=== PATIENT | male | born 1985 | race Caucasian/White ===

== ENCOUNTER 2016-10-17 17:50 | Emergency (ER) | payer MEDICAID ==
[~2016-10-17 17:50] MED LIST: SYNTHROID PO
== END 2016-10-17 19:46 | disposition home or self-care (01) ==
LOC: CED 17:50
DX: F41.0 Panic disorder [episodic paroxysmal anxiety] (principal); F41.1 Generalized anxiety disorder; Z91.030 Bee allergy status
CPT/HCPCS: 96372; 99283; J2060

== ENCOUNTER 2016-12-24 10:26 | Inpatient (IN) | payer MEDICAID ==
--- NOTE | ~2016-12-24 | PA ---
Unit #: [id number] #: [id number] Patient: [facility]LL [facility]O [id number] [facility] [address] [place] [address] [id number] MR#: [id number] NAME: MAXWELL LAO ROOM: P175 Age: 31 Sex: M Admission Date: 12/24/2016 : 1985 Date of Assessment: 12/24/2016 Attending Physician: Mane Tyler M.D. Admitting Physician: Mane Tyler M.D. Primary Care Physician: Primary Care Physician No PSYCHIATRIC ASSESSMENT DATE OF SERVICE 12/24/2016. IDENTIFYING DATA Mr. Lao is a 31-year-old single white male, who is a resident of [place], [place] and is known to us from previous multiple encounters and was self-referred to the hospital with a blood alcohol level of 0.231. CHIEF COMPLAINT "Depression and suicidal thoughts." HISTORY OF PRESENT ILLNESS Mr. Lao is a 31-year-old white male with long history of mood disorder and substance abuse, who is known to us from previous multiple encounters and has a history of multiple inpatient psychiatric hospitalization with failure to follow up with outpatient treatment recommendations and once again, he relapsed on alcohol and has been drinking regularly and heavily and presented to the hospital in intoxicated state and then made statements that he has been having increasing depression and he seeking medication adjustment without realizing that he cannot be drinking with medication and expecting medications to work and this has been educated to him several times, but he continues to endorse poor insight into his situation and exhibits med seeking behavior with frequent multiple inpatient hospitalization. He now reports that he does not feel that his antipsychotic medication is working for him and that he has had increasing depression for about 2 weeks and that he does not currently take medication because they do not work and reports that he has suicidal ideation. He does not know if he could carry out a suicide attempt and reports that he walks out from his job and reports he cannot deal with his mental health at work and as such, recommendation for inpatient level of care was made and the patient was stepped up to the inpatient unit. SUBSTANCE ABUSE HISTORY The patient has a history of alcohol and cannabis abuse, and currently alcohol has been his drug of choice. PAST PSYCHIATRIC HISTORY The patient has had history of inpatient [facility] and has been diagnosed and treated for mood disorder. Review of the medical records indicate that he is supposed to be on a combination of Lamictal, Thorazine, and Risperdal, but apparently has been noncompliant with medications and has been drinking and as such, has not been able to show a therapeutic response to medications. Unit #: [id number] #: [id number] Patient: MAXWELL LAO PAST MEDICAL HISTORY The patient's medical history is significant for hypothyroidism, history of withdrawal seizures. ALLERGIES No known medication allergies. PERSONAL AND SOCIAL HISTORY A 31-year-old white male, who reports that he is single, unemployed, and lives in a chcf house and has poor social support system. MENTAL STATUS EXAMINATION Young white male, who was casually dressed with fair personal hygiene no acute distress or discomfort. He was awake and alert on interaction with intact orientation to time, place, and person. His mood was anxious and depressed with a congruent affect. His speech was slow and restricted in content. His thought processes were disorganized with some looseness of associations and suicidal ideations. His insight and judgment remain significantly impaired. DIAGNOSTIC IMPRESSION Psychiatric: Alcohol dependence, moderate and acute withdrawals; bipolar disorder, most recent episode depressed, recurrent, moderate, without psychotic features. Medical: History of withdrawal seizures. Stressors: Moderate psychosocial stressors. TREATMENT PLAN 1. The patient has presented with history of substance abuse and mood disorder, and has been decompensating and will need inpatient hospitalization for safety and stabilization. We will start back on his home medications and we will adjust the medications and monitor response. 2. Supportive therapy was provided to the patient. 3. Safe, structured, and nourishing environment will be provided. ESTIMATED LENGTH OF STAY 4 to 5 days. ABILITY TO HELP SELF Limited. WILLINGNESS TO HELP SELF The patient appears to be willing to help self. STRENGTHS 1. Communicative. 2. Cooperative. PROBLEMS 1. Chronic dysphoric symptoms. 2. Poor social support system. DISCHARGE CRITERIA This will be contingent upon the patient's ability to go through detox without having any significant withdrawal symptoms as well as ability to stay safe to himself, particularly after discharge from the hospital. Unit #: [id number] #: [id number] Patient: MAXWELL LAO Dictated by... Jonh Kim/zulema TD: 12/25/2016 06:51 JOB #: [id number] PSYCHIATRIC ASSESSMENT Page 1 of 1 X Mane Tyler MD PSYCHIATRIC ASSESSMENT
--- NOTE | ~2016-12-24 | DS ---
Unit #: [id number] #: [id number] Patient: MAXWELL LAO [id number] [facility] [address] [place] [address] [id number] MR#: [id number] NAME: MAXWELL LAO ROOM: [facility] Age: 31 Sex: M Admission Date: 12/24/2016 : 1985 Discharge Date: 12/30/2016 Attending Physician: Mane Tyler M.D. Primary Care Physician: Primary Care Physician No DISCHARGE SUMMARY IDENTIFYING DATA Mr. Lao is a 31-year-old single white male, who is a resident of [place], [place] and is known to us from previous encounter, and was self-referred to the hospital on a voluntary basis. DISCHARGE DIAGNOSES Psychiatric: Alcohol dependence, moderate, in acute withdrawals; bipolar disorder, most recent episode depressed, recurrent, moderate, without psychotic features. Medical: History of withdrawal seizures. Stressors: Moderate psychosocial stressors. HISTORY OF PRESENT ILLNESS Please see initial psychiatric evaluation for details. PAST PSYCHIATRIC HISTORY Please see initial psychiatric evaluation for details. PAST MEDICAL HISTORY Please see initial psychiatric evaluation for details. HOSPITAL COURSE The patient was [facility] and was oriented to the hospital environment. Routine p.r.n. medications were initiated, and he was started back on his home medications and medications were adjusted and he was closely monitored. He was seen to be complaining of persistent anger, agitation, irritability and Risperdal was started and he was seen to be doing much better and was calm and cooperative and was able to complete the treatment program without any complications and was willing to continue treatment on an outpatient basis and as such, it was decided that he will be discharged home and will continue treatment on an outpatient basis. DISCHARGE MEDICATIONS Lamictal 50 mg b.i.d. for mood disorder, and Risperdal 1 mg b.i.d. for mood disorder. DISCHARGE CONDITION Stable. PROGNOSIS Fair. Unit #: [id number] #: [id number] Patient: MAXWELL LAO Dictated by... Mane Tyler M.D. IAA/modl TD: 12/31/2016 01:48 JOB #: [id number] DISCHARGE SUMMARY Page 1 of 1 X Mane Tyler MD DISCHARGE SUMMARY
--- NOTE | ~2016-12-24 | PN ---
Unit #: [id number] #: [id number] Patient: MAXWELL LAO [id number] [facility] [address] [place] [address] [id number] I MR#: [id number] NAME: MAXWELL LAO ROOM: 75 Age: 31 Sex: M Admission Date: 12/24/2016 : 1985 Attending Physician: Mane Tyler M.D. Admitting Physician: Mane Tyler M.D. Primary Care Physician: Primary Care Physician Ratna GUPTA NOTES DATE December 29, 2016 DISCUSSION Mr. Lao is a 31-year-old white male, who was seen today and chart was reviewed and the case was discussed with the staff. He still reports having mood swings and anxiety and reports that he has been taking the medications and tolerating them fairly well. The patient appears to be adjusting properly. MENTAL STATUS EXAMINATION Young white male, who was casually dressed with fair personal hygiene and appears to be in no acute distress or discomfort. He was awake and alert with intact orientation. His mood is anxious with a congruent affect. He denies any suicidal or homicidal ideations. His insight and judgment remain slightly impaired. TREATMENT PLAN 1. We will increase his dose of Adderall to (1) . 2. We will continue to followup. Dictated by... Jonh Kim/becca TD: 12/31/2016 05:05 JOB #: [id number] TERES[facility] PROGRESS NOTES Page 1 of 1 X Mane Tyler MD X PROGRESS NOTE
--- NOTE | ~2016-12-24 | PN ---
Unit #: [id number] #: [id number] Patient: MAXWELL VILLA [id number] [facility] [address] [place] [address] [id number] I MR#: [id number] NAME: MAXWELL VILLA ROOM: [facility] Age: 31 Sex: M Admission Date: 12/24/2016 : 1985 Attending Physician: Mane Tyler M.D. Admitting Physician: Mane Tyler M.D. Primary Care Physician: Primary Care Physician Ratna MOORE PROGRESS NOTES DATE 12/27/2016 DISCUSSION Olnzsl-wywg-xvo white male who was seen today and chart was reviewed and case was discussed with the staff. He has been anxious, withdrawn though has not shown any agitation, irritability and has been cooperative with treatment recommendations and has been taking medications and tolerating them fairly well with no reported side effects. MENTAL STATUS EXAMINATION Young white male who was casually dressed with fair personal hygiene and appears to be in no acute distress or discomfort. He was awake and alert on interaction with intact orientation. His mood was anxious with congruent affect. He denies any suicidal or homicidal ideation. His insight and judgement remains slightly impaired. TREATMENT PLAN 1. Will continue on his current medications and treatment protocol. Will monitor his response to the medications and make further adjustments as needed. 2. Will continue to follow up. Dictated by... Jonh Kim/raphael TD: 12/28/2016 22:13 JOB #: [id number] Unit #: [id number] #: [id number] Patient: MAXWELL VILLA PROGRESS NOTES Page 1 of 1 X Mane Tyler MD X PROGRESS NOTE
--- NOTE | ~2016-12-24 | PN ---
Unit #: [id number] #: [id number] Patient: MAXWELL LAO [id number] [facility] [address] [place] [address] [id number] MR#: [id number] NAME: MAXWELL LAO ROOM: [facility] Age: 31 Sex: M Admission Date: 12/24/2016 : 1985 Attending Physician: Mane Tyler M.D. Admitting Physician: Mane Tyler M.D. Primary Care Physician: Primary Care Physician Ratna GUPTA NOTES DATE December 26, 2016 DISCUSSION Mr. Lao is a 31-year-old white male, who was seen today and chart was reviewed and the case was discussed with the staff. He is anxious, withdrawn, depressed, and rather seclusive to himself. Meanwhile, he has been cooperative with the treatment recommendations and tolerating them fairly well with no reported side effects. MENTAL STATUS EXAMINATION Young white male, who was casually dressed with fair personal hygiene and appears to be in no acute distress or discomfort. He was awake and alert on interaction with intact orientation. His mood is anxious with a congruent affect. He denies any suicidal or homicidal ideations, and also denies any auditory or visual hallucinations. His insight and judgment remain slightly impaired. TREATMENT PLAN 1. We will continue him on his current medications and treatment protocol, and will monitor his response, and make further adjustments as needed. 2. We will continue to followup. Dictated by... Jonh Kim/becca TD: 12/27/2016 05:51 JOB #: [id number] Unit #: [id number] #: [id number] Patient: MAXWELL LAO PROGRESS NOTES Page 1 of 1 X Mane Tyler MD PROGRESS NOTE
--- NOTE | ~2016-12-24 | PN ---
Unit #: [id number] #: [id number] Patient: MAXWELL LAO [id number] [facility] [address] [place] [address] [id number] MR#: [id number] NAME: MAXWELL LAO ROOM: [facility] Age: 31 Sex: M Admission Date: 12/24/2016 : 1985 Attending Physician: Mane Tyler M.D. Admitting Physician: Mane Tyler M.D. Primary Care Physician: Primary Care Physician Ratna MOORE PROGRESS NOTES DATE December 25, 2016 DISCUSSION Mr. Lao is a 31-year-old white male, who was seen today and chart was reviewed and the case was discussed with the staff. He has been anxious, withdrawn, and seclusive to himself. Meanwhile, he has been cooperative with the treatment recommendations and he has been taking the medications and tolerating them fairly well with no reported side effects. MENTAL STATUS EXAMINATION Young white male, who was casually dressed with fair personal hygiene and appears to be in no acute distress or discomfort. The patient was awake and alert on interaction with intact orientation. His mood is anxious with a congruent affect. He reports having suicidal ideations but denies any homicidal ideations. His insight and judgment remain slightly impaired. TREATMENT PLAN 1. We will continue him on his current medications and treatment protocol, and will monitor his response to the medications, and make further adjustments as needed. 2. We will continue to followup. Dictated by... Jonh Kim/becca TD: 12/25/2016 10:45 JOB #: [id number] Unit #: [id number] #: [id number] Patient: MAXWELL LAO PROGRESS NOTES Page 1 of 1 X Mane Tyler MD PROGRESS NOTE
--- NOTE | ~2016-12-24 | HP ---
Unit #: [id number] #: [id number] Patient: JAIME VILLA [id number] [place] [address] [id number] I MR#: [id number] NAME: JAIME VILLA ROOM: P175 Age: 31 Sex: M Admission Date: 12/24/2016 : 1985 Attending Physician: Mane Tyler M.D. Admitting Physician: Mane Tyler M.D. Primary Care Physician: Primary Care Physician No HISTORY AND PHYSICAL HISTORY OF PRESENT ILLNESS Jaime is a 31 year old admitted to [facility] because of his abuse of alcohol. He has had other admission to this facility for the same. PAST MEDICAL HISTORY 1. Long history of alcohol abuse. 2. History of withdrawal seizures. 3. Hypothyroidism. 4. History of thyroid cancer. a. Total thyroidectomy. PAST SURGICAL HISTORY As above ALLERGIES No known drug allergies. SOCIAL HISTORY Smokes 1 1/2 packs per day. Drinks at least three pints of liquor on a daily basis. Admits to using marijuana on occasion. FAMILY HISTORY Medically noncontributory. REVIEW OF SYSTEMS CONSTITUTIONAL: No fever or chills. HEENT: Denies any sore throat, ear pain or runny nose. CARDIOVASCULAR: Denies chest pain, irregular heart rhythm or palpitations. CHEST: Denies shortness of breath or cough. No hemoptysis. GASTROINTESTINAL: Denies nausea, vomiting, diarrhea or chronic constipation. ENDOCRINE: Denies history of increased thirst or urination. No recent significant weight loss or gain. GENITOURINARY: Denies dysuria, frequency, or hematuria. SKIN: Denies any rashes. HEMATOLOGIC: Denies history of increased bleeding or bruising. MUSCULOSKELETAL: Denies any hot, swollen joints. No generalized muscle pain. NEUROLOGIC: Denies problems with vision or speech. No frequent, severe headaches. No numbness, tingling or weakness in any extremities. Denies loss of bladder or bowel control. Unit #: [id number] #: [id number] Patient: JAIME VILLA CURRENT MEDICATIONS 1. Detox protocol 2. Synthroid 0.1 mg q day 3. Levothroid 0.075 mg q day 4. Lamictal 50 mg b.i.d. 5. Flexeril 10 mg t.i.d. 6. Wherqhaww87 mg t.i.d. PHYSICAL EXAMINATION GENERAL: Alert, well-nourished, in no apparent distress. VITAL SIGNS: Blood pressure 122/72, heart rate 72, respirations 16, temperature 98.6. WEIGHT: 175 pounds. HEIGHT: 5'11". SKIN: Warm and dry without rash or lesion. HEENT: Normocephalic. TMs not viewed. Oral and nasal passages clear. Conjunctivae clear. Pupils equal, round and reactive to light and accommodation. Extraocular movements intact. NECK: Supple without lymphadenopathy or thyromegaly. HEART: Regular rate and rhythm without murmur. LUNGS: Clear. ABDOMEN: Soft, nontender. : Not done. EXTREMITIES: No evidence of cyanosis, clubbing or edema. Moves all extremities without focal deficit. NEUROLOGICAL: Grossly within normal limits. Cranial Nerves: II: Visual landis are intact. III, IV AND : Extraocular movements are intact. Pupils are equal, round and reactive to light. V: Facial sensation is grossly normal. VII: Facial movements and expression are normal. VIII: Auditory acuity grossly intact. IX, X: Uvula is midline. Phonation is normal. XI: Patient shrugs shoulders and turns head normally. XII: Tongue protrudes in the midline. Sensory and Motor Function: Sensory and motor sensation is grossly normal. Motor: moves all extremities well. Coordination: Gait is normal. Deep Tendon Reflexes: Intact. IMPRESSION Psychiatric admission RECOMMENDATIONS PSYCHIATRIC: Per psychiatrist. MEDICAL: I see no contraindications to participating in facility's activities. MEDICAL PROGNOSIS Good. MEDICAL CONDITION Stable. Dictated by... Heather McclureAKelly for Unit #: [id number] #: [id number] Patient: JAIME VILLA Jonh Fernandez/rhett TD: 12/25/2016 23:33 JOB #: [id number] HISTORY AND PHYSICAL Page 1 of 1 X Tonya Worthington HISTORY AND PHYSICAL
--- NOTE | ~2016-12-24 | PN ---
Unit #: [id number] #: [id number] Patient: MAXWELL LAO [id number] [facility] [address] [place] [address] [id number] I MR#: [id number] NAME: MAXWELL LAO ROOM: [facility] Age: 31 Sex: M Admission Date: 12/24/2016 : 1985 Attending Physician: Mane Tyler M.D. Admitting Physician: Mane Tyler M.D. Primary Care Physician: Primary Care Physician Ratna GUPTA NOTES DATE OF SERVICE: 12/28/2016 SUBJECTIVE Mr. Lao is a 31-year-old white male with substance abuse and mood disorder, who was seen today and chart was reviewed, and case was discussed with the staff. He has been anxious, withdrawn, and seclusive to himself and has blunted affect with minimal interaction and poor eye contact socializing or interacting very much. However, he has been taking medications and tolerating them fairly well with no reported side effects. MENTAL STATUS EXAMINATION Young white male who was casually dressed with fair personal hygiene, appears to be in no acute distress or discomfort. He was awake and alert on interaction with intact orientation. His mood was anxious with a congruent affect. He denies any suicidal or homicidal ideations, and also denies any auditory or visual hallucinations. His insight and judgment remain slightly impaired. TREATMENT PLAN 1. We will continue him on his current medications and treatment protocol. We will monitor his response to the medication and make further adjustments as needed. 2. We will continue to follow up. Dictated by... Jonh Kim/modl TD: 12/28/2016 19:39 JOB #: [id number] Unit #: [id number] #: [id number] Patient: MAXWELL LAO GRAYBETHANY CANDY NOTES Page 1 of 1 X Mane Tyler MD PROGRESS NOTE
[2016-12-25 09:47] LABS: BASOPHIL% 0.9 % (0-2.5); EOSINOPHIL# 0.1 X10e3 (0-0.7); EOSINOPHIL% 1.7 % (0.0-7.0); HEMATOCRIT 38.7 % (38.0-50.0); HEMOGLOBIN 12.4 gm/dL (13.0-16.0); LYMPHOCYTE# 1.7 X10e3 (1.0-3.5); MEAN CELL VOLUME 79.9 FL (83-96); MEAN CORPUSCULAR HEMOGLOBIN 25.6 PG (28-34); MEAN PLATELET VOLUME 7.6 FL (6.5-11.5); MONOCYTE# 0.4 X10e3 (0-1.0); NEUTROPHIL% 56.4 % (40-75); PLATELET COUNT 311 X10e3 (140-420); RED BLOOD COUNT 4.84 X10e (3.90-5.60); RED CELL DISTRIBUTION WIDTH 16.9 % (11.0-15.5); WHITE BLOOD COUNT 5.3 X10e3 (4.0-10.5)
[2016-12-25 09:58] LABS: DIFF IND NO
[2016-12-25 10:10] LABS: THYROID STIMULATING HORMONE 3.22 uIU/ml (0.34-5.60)
[2016-12-25 10:13] LABS: ALBUMIN SERUM 4.1 g/dL (3.5-5.0); BILIRUBIN,TOTAL 0.4 mg/dL (0.2-2.0); CALCIUM SERUM 9.2 mg/dL (8.4-10.2); GLOM FILT RATE Estimated 100.6 mL/min (>60); POTASSIUM 4.7 mmol/L (3.5-5.1); PROTEIN TOTAL SERUM 6.1 g/dL (6.0-8.3)
[2016-12-25 10:18] LABS: FREE THYROXIN (T4) 0.51 ng/dL (0.58-1.64)
[2016-12-26 12:28] LABS: URINE APPEARANCE CLEAR; URINE BILIRUBIN NEG (NEG); URINE BLOOD NEG (NEG); URINE COLOR DK YELLOW; URINE GLUCOSE NEG (NEG); URINE KETONE NEG (NEG); URINE LEUKOCYTE ESTERASE NEG (NEG); URINE NITRATE NEG (NEG); URINE PROTEIN NEG (NEG); URINE SPECIFIC GRAVITY 1.025 (1.003-1.035); URINE UROBILINOGEN 0.2 MG/DL (NEG)
[2016-12-26 13:11] LABS: AMPHETAMINE NEG (NEG); BARBITURATES NEG (NEG); BENZODIAZEPINES POS (NEG); COCAINE NEG (NEG); MARIJUANA NEG (NEG); OPIATES NEG (NEG); TRICYCLIC ANTIDEPRESSANTS POS (NEG); U METHADONE NEG (NEG)
== END 2016-12-30 09:30 | disposition home or self-care (01) | DRG 897 ==
LOC: P1E 12:12
PROVIDERS: Psychiatry & Neurology Psychiatry
PROC: HZ2ZZZZ Detoxification Services for Substance Abuse Treatment (ICD-10-PCS; principal; 2016-12-24)
DX: F10.239 Alcohol dependence with withdrawal, unspecified (principal); F31.32 Bipolar disorder, current episode depressed, moderate; Z56.0 Unemployment, unspecified; E03.9 Hypothyroidism, unspecified; F17.210 Nicotine dependence, cigarettes, uncomplicated
CPT/HCPCS: 80053; 80307; 81003; 84439; 84443; 85025; 86592

== ENCOUNTER 2017-04-26 21:00 | Inpatient (IN) | payer MEDICAID ==
[~2017-04-26] VITALS: Ht 180.3 cm; Wt 77.1 kg
--- NOTE | ~2017-04-26 | A ---
[facility] Nutrition Therapy DATE: 04/28/17 Patient: MAXWELL VILLA Physician: BART Address: [address] [facility] Room/Bed: [address], Zip: [place] [address] Admit Date: 04/26/17 Date of : [birth year] Height: 5 11 Weight: 169 77.94661 NUTRITIONAL ASSESSMENT: REASON: 2 NUTRITIONAL RISK POINTS: UNINTENTIONAL WEIGHT LOSS, CHEWING/SWALLOWING DIFFICULTIES PATIENT ADMITTED FOR SI AND ETOH DETOX PMH: HX THYROID CANCER, HX SEIZURE DISORDER, HYPOTHYROIDISM Anthropometrics: HT: 71", WT: 170#, BMI: 23.7 Labs: 04/27/11- GLU: 68 Meds: RISPERDAL, NEURONTIN, DESYREL, SYNTHROID, MVI, B12 COMPLEX, DETOX PROTOCOL Assessment: PATIENT IS A 31 Y/O MALE ADMITTED FOR SI AND ETOH DETOX. PATIENT IS CURRENTLY UNEMPLOYED, ESSENTIALLY HOMELESS, SMOKES 2 PPD, AND HE HAS A HX OF ETOH AND MARIJUANA USE. IT IS NOTED THAT PATIENT HAS A HX OF INPATIENT PSYCH HOSPITALIZATIONS, HE HAD BEEN NON-COMPLIANT WITH HIS MEDS PRIOR TO ADMIT, AND HE HAS BEEN IRRTABLE AND AGGITATED SINCE ADMIT. UPON ADMIT PATIENT STATED A POOR APPETITE WITH A 5# WEIGHT LOSS X WEEK, AND HE HAS NOT BEEN SLEEPING (3HRS/NIGHT). [facility]# IN 01/01, 165# IN 10/04, AND STABLE WEIGHT X 1 YEAR. ON 04/22/17 PATIENT HAD MULTIPLE BOTTOM TEETH EXTRACTED AND HE CURRENTLY HAS STITCHES ACROSS HIS LOWER GUM. NURSING REPORTS POOR-GOOD PO INTAKES. HE IS CURRENTLY ON A REGULAR DIET WITH NO CAFFEINE. Dx: UNINTENTIONAL WEIGHT LOSS R/T CURRENT CONDITIONS AEB SELF-REPORTED WEIGHT LOSS AND DECREASED APPETITE, 2 NUTRITIONAL RISK POINTS, MULTIPLE TOOTH EXTRACTION Intervention: REGULAR DIET, NO CAFFEINE, MEDS PER MD, DETOX, PSYCH Monitoring, Evaluation and Goals: 1. ADEQUATE PO INTAKES >50% OF MEALS 2. PREVENT, CORRECT MICRO/MACRO NUTRIENT DEFICIENCIES 3. WEIGHT; MAINTAIN CURRENT WEIGHT, PREVENT WEIGHT LOSS MONITOR: WEIGHTS, LABS, PO/FLUID INTAKES Recommendations: 1. CONTINUE REGULAR DIET WITH NO CAFFEINE TOLERATED. OFFER SNACKS BETWEEN MEALS. RECOMMEND TO DOWNGRADE DIET TO MECHANICAL SOFT IF PATIENT HAS ANY CHEWING DIFFICULTIES R/T DENTAL CONCERNS 2. ENCOURAGE ADEQUATE PO AND FLUID INTAKES [facility] Nutrition Therapy DATE: 04/28/17 Patient: MAXWELL VILLA Physician: BART Address: [address] Room/Bed: [address], Zip: [place] [id number] Admit Date: 04/26/17 Date of : [birth year] Height: 5 11 Weight: 169 77.78061 3. IF PO INTAKES ARE BELOW 50% OF MEALS PLEASE ORDER ENSURE BID TO PROMOTE ADEQUATE KCAL AND PROTEIN INTAKES 4. CONSULT ADMIN PROG COORD IF PATIENT HAS ANY FURTHER CHEWING OR SWALLOWING DIFFICULTIES. 5. WILL CONTINUE TO MONITOR WEIGHTS AND PO INTAKES RD TO F/U PER PROTOCOL AND PRN R/T PATIENT MILD/MODERATELY COMPROMISED Respectfully, RIZWAN HANLEY, RD, LD Food and Nutritional Services [facility] cc: client file
--- NOTE | ~2017-04-26 | DS ---
Unit #: [id number] #: [id number] Patient: MAXWELL LAO [id number] [facility] [address] [place] [address] [id number] I MR#: [id number] NAME: MAXWELL LAO ROOM: P185 Age: 31 Sex: M Admission Date: 04/26/2017 : 1985 Discharge Date: 05/01/2017 Attending Physician: Mane Tyler M.D. Primary Care Physician: Generic Doctor Not In System DISCHARGE SUMMARY IDENTIFYING DATA Mr. Lao is a 31-year-old single white male, who is a resident of [place], [place], and is known to us from previous encounter, and was self-referred to the hospital. DISCHARGE DIAGNOSES Psychiatric: Bipolar disorder, most recent episode depressed, recurrent, moderate, without psychotic features; alcohol dependence, moderate. Medical: Hypothyroidism, history of withdrawal seizures. Stressors: Moderate psychosocial stressors. HISTORY OF PRESENT ILLNESS Please see initial psychiatric evaluation for details. PAST PSYCHIATRIC HISTORY Please see initial psychiatric evaluation for details. PAST MEDICAL HISTORY Please see initial psychiatric evaluation for details. HOSPITAL COURSE The patient was admitted to the adult psychiatric unit at [facility] nicole Chavira and was oriented to the hospital environment. Routine p.r.n. medications were initiated, and he was started back on his home medications and detox protocol was initiated and he was closely monitored. He was taking the medications regularly and was tolerating them fairly well and was able to show a decent and therapeutic response and was able to come out of the detox without any complications and as such, it was decided that he will be discharged home and will continue treatment on an outpatient basis. DISCHARGE MEDICATIONS Wellbutrin SR 150 mg b.i.d. for depression, Risperdal 1 mg b.i.d. and 2 mg at bedtime for bipolar, Lamictal 25 mg b.i.d. for bipolar, Neurontin 600 mg t.i.d. for neuropathy, Synthroid 0.05 mg a day for hypothyroidism. DISCHARGE CONDITION Stable. PROGNOSIS Fair. Unit #: [id number] #: [id number] Patient: MAXWELL LAO Dictated by... Mane Tyler M.D. IAA/modl TD: 05/01/2017 06:39 JOB #: [id number] DISCHARGE SUMMARY Page 1 of 1 X Mane Tyler MD DISCHARGE SUMMARY
--- NOTE | ~2017-04-26 | PA ---
Unit #: [id number] #: [id number] Patient: MAXWELL LAO [id number] [facility] [address] [place] [address] [id number] MR#: [id number] NAME: MAXWELL LAO ROOM: P185 Age: 31 Sex: M Admission Date: 04/26/2017 : 1985 Date of Assessment: 04/27/2017 Attending Physician: Mane Tyler M.D. Admitting Physician: Mane Tyler M.D. Primary Care Physician: Generic Doctor Not In System PSYCHIATRIC ASSESSMENT DATE OF SERVICE 04/27/2017. IDENTIFYING DATA Mr. Lao is a 31-year-old single white male, who is a resident of [place], [place], and is known to us from previous multiple encounters and was self-referred to the hospital on a voluntary basis. CHIEF COMPLAINT "I'm very depressed. I almost feel suicidal. I feel like jumping off the [address]." HISTORY OF PRESENT ILLNESS Mr. Lao is a 31-year-old white male with history of substance abuse and mood disorder, who came to the hospital reporting increasing depression and suicidal ideations with a plan to jump off the [address] [place] "I live close enough and that bridge is the closest. Life in general sucks, I just had my bottoms pulled this week and I'm in pain and I don't give a shit anymore. I don't think there is any hope for me. I feel lost and I think I'm better off being gone." The patient reports drinking a beer half hour prior to coming to the hospital. He reports drinking one beer on top of the 10 beers he drank today and his blood alcohol level was 0.260 and stated that he has not been on his medications for 2 days, but he cannot remember what he takes rather than the antibiotics and prescribed pain pills for his teeth. He was seen to be agitated, irritable, and angry and reports increasing depression, suicidal ideations, and as such, a recommendation for inpatient level of care for safety and stabilization was made and the patient was stepped up to the inpatient unit. SUBSTANCE ABUSE HISTORY The patient reports history of alcohol and cannabis abuse and alcohol has been his drug of choice. PAST PSYCHIATRIC HISTORY The patient has had a history of multiple inpatient psychiatric hospitalizations at [facility] in addition being at several other facilities including [facility], and [facility], and has been seeing a psychiatrist on an outpatient basis and has been on a combination of psychotropic medication with a diagnosis of bipolar disorder. PAST MEDICAL HISTORY Unit #: [id number] #: [id number] Patient: MAXWELL LAO The patient's medical history is significant for history of withdrawal seizures and hypothyroidism. ALLERGIES No known medication allergies. PERSONAL AND SOCIAL HISTORY A 31-year-old white male, who reports that he is single, unemployed, and essentially homeless and has poor social support system. MENTAL STATUS EXAMINATION Young white male, who was casually dressed with fair personal hygiene, appears to be in no acute distress or discomfort. He was awake and alert on interaction with intact orientation to time, place, and person. His mood was anxious and depressed with a congruent affect. His speech was slow and restricted in content. His thought processes were disorganized with some looseness of associations and suicidal ideations. His insight and judgment remain significantly impaired. DIAGNOSTIC IMPRESSION Psychiatric: Bipolar disorder, most recent episode depressed, recurrent, moderate, without psychotic features and alcohol dependence, moderate. Medical: Hypothyroidism and history of withdrawal seizures. Stressors: Moderate psychosocial stressors. TREATMENT PLAN 1. The patient has presented with a history of substance abuse and mood disorder and has been decompensating and will need inpatient hospitalization for safety and stabilization. We will start him back on his home medications and detox protocol will be initiated as well. 2. Supportive therapy was provided to the patient. 3. Safe, structured, and nourishing environment will be provided. ESTIMATED LENGTH OF STAY 5 to 7 days. ABILITY TO HELP SELF Limited. WILLINGNESS TO HELP SELF The patient appears to be willing to help self. STRENGTHS 1. Communicative. 2. Cooperative. PROBLEMS 1. Chronic dysphoric symptoms. 2. Poor social support system. 3. Chronic chemical dependency. DISCHARGE CRITERIA This will be contingent upon the patient's ability to go through detox without having any significant withdrawal symptoms as well as his ability to stay safe to himself, particularly after discharge from the hospital. Dictated by... Unit #: [id number] #: [id number] Patient: MAXWELL LAO Jonh Kim/zulema TD: 04/27/2017 16:22 JOB #: [id number] PSYCHIATRIC ASSESSMENT Page 1 of 1 X Mane Tyler MD PSYCHIATRIC ASSESSMENT
--- NOTE | ~2017-04-26 | HP ---
Unit #: [id number] #: [id number] Patient: MAXWELL VILLA [id number] [place] [address] [id number] I MR#: [id number] NAME: MAXWELL VILLA ROOM: P185 Age: 31 Sex: M Admission Date: 04/26/2017 : 1985 Attending Physician: Mane Tyler M.D. Admitting Physician: Mane Tyler M.D. Primary Care Physician: Generic Doctor Not In System HISTORY AND PHYSICAL HISTORY OF PRESENT ILLNESS Patient is a 31-year-old male admitted on on 04/27/2017 for suicidal ideations and alcohol abuse. The patient was drunk on admission. PAST MEDICAL HISTORY 1. History of alcohol abuse. 2. Withdrawal seizures. 3. Hypothyroidism. 4. History of thyroid cancer. 5. Depression and suicidal ideations. 6. Mouth pain from recent oral surgery. 7. Nicotine dependence. PAST SURGICAL HISTORY Thyroidectomy, recent oral surgery. SOCIAL HISTORY He is employed working on [employer]. He lives in a fdc house. He smokes 1 to 1 1/2 packs of cigarettes daily. Has a history of alcohol abuse and now binge drinks regularly. FAMILY MEDICAL HISTORY Noncontributory. ALLERGIES No known drug allergies. CURRENT MEDICATIONS 1. Gabapentin 2. Stonewall 3. Amoxil 4. Synthroid 5. Lamictal 6. Risperdal 7. Wellbutrin REVIEW OF SYSTEMS CONSTITUTIONAL: No fever or chills. HEENT: Denies any sore throat, ear pain or runny nose. CARDIOVASCULAR: Denies chest pain, irregular heart rhythm or palpitations. CHEST: Denies shortness of breath or cough. No hemoptysis. GASTROINTESTINAL: Denies nausea, vomiting, diarrhea or chronic constipation. Unit #: [id number] #: [id number] Patient: MAXWELL VILLA ENDOCRINE: Denies history of increased thirst or urination. No recent significant weight loss or gain. GENITOURINARY: Denies dysuria, frequency, or hematuria. SKIN: Denies any rashes. HEMATOLOGIC: Denies history of increased bleeding or bruising. MUSCULOSKELETAL: Denies any hot, swollen joints. No generalized muscle pain. NEUROLOGIC: Denies problems with vision or speech. No frequent, severe headaches. No numbness, tingling or weakness in any extremities. Denies loss of bladder or bowel control. PHYSICAL EXAM GENERAL: He is awake, alert and oriented in no acute distress. VITAL SIGNS: Temperature 98.1, heart rate 79, respiration 16, blood pressure 108/74. HEIGHT: 5'11". WEIGHT: 170 pounds. SKIN: Warm and dry without rash or lesion. HEENT: Normocephalic. TMs not viewed. Oral and nasal passages clear. Conjunctivae clear. PERRLA. EOMs intact. NECK: Supple without lymphadenopathy or thyromegaly. HEART: Regular rate and rhythm without murmur. LUNGS: Clear. ABDOMEN: Soft, nontender. : Not done. EXTREMITIES: No evidence of cyanosis, clubbing or edema. Moves all without focal deficit. NEUROLOGICAL: Grossly within normal limits. Cranial Nerves: II: Visual landis are intact. III, IV AND : Extraocular movements are intact. Pupils are equal, round and reactive to light. V: Facial sensation is grossly normal. VII: Facial movements and expression are normal. VIII: Auditory acuity grossly intact. IX, X: Uvula is midline. Phonation is normal. XI: Patient shrugs shoulders and turns head normally. XII: Tongue protrudes in the midline. Sensory and Motor Function: Sensory and motor sensation is grossly normal. Motor: moves all extremities well. IMPRESSION 1. Psychiatric admission. 2. History of alcohol abuse. 3. Withdrawal seizures. 4. Hypothyroidism. 5. History of thyroid cancer. 6. Depression and suicidal ideations. 7. Mouth pain. 8. Nicotine dependence. RECOMMENDATIONS Psychiatric per psychiatrist. MEDICAL: No contraindication to participate in facility activities. MEDICAL PROGNOSIS Good. MEDICAL CONDITION Stable. Unit #: [id number] #: [id number] Patient: MAXWELL VILLA Dictated by... Christine Gavin/rhett TD: 04/28/2017 00:19 JOB #: [id number] HISTORY AND PHYSICAL Page 1 of 1 X RICKIE GODINEZ APRN X HISTORY AND PHYSICAL
--- NOTE | ~2017-04-26 | PN ---
Unit #: [id number] #: [id number] Patient: MAXWELL LAO [id number] [facility] [address] [place] [address] [id number] I MR#: [id number] NAME: MAXWELL LAO ROOM: P185 Age: 31 Sex: M Admission Date: 04/26/2017 : 1985 Attending Physician: Mane Tyler M.D. Admitting Physician: Mane Tyler M.D. Primary Care Physician: Generic Doctor Not In System [facility] PROGRESS NOTES DATE 04/30/2017 DISCUSSION Mr. Lao is a 31-year-old, white male who was seen today and chart was reviewed and case was discussed with the staff. He reported feeling somewhat better particularly with medication adjustment yesterday and he has been compliant with the treatment recommendations and has been going to therapy groups and has been participating. MENTAL STATUS EXAM Young white male who was casually dressed with fair personal hygiene, appears to be in no acute distress or discomfort. He was awake and alert on interaction with intact orientation. His mood was anxious with congruent affect. He denies any suicidal or homicidal ideation. His insight and judgement remains slightly impaired. TREATMENT PLAN 1. We will continue him on his current medications and treatment protocol. We will consider doing discharge planning tomorrow. 2. We will continue to follow up. Dictated by... Jonh Kim/rhett TD: 05/01/2017 00:10 JOB #: [id number] Unit #: [id number] #: [id number] Patient: MAXWELL LAO [facility] PROGRESS NOTES Page 1 of 1 X Mane Tyler MD PROGRESS NOTE
--- NOTE | ~2017-04-26 | PN ---
Unit #: [id number] #: [id number] Patient: MAXWELL LAO [id number] [facility] [address] [place] [address] [id number] MR#: [id number] NAME: MAXWELL LAO ROOM: 85 Age: 31 Sex: M Admission Date: 04/26/2017 : 1985 Attending Physician: Mane Tyler M.D. Admitting Physician: Mane Tyler M.D. Primary Care Physician: Jacobo Doctor Not In System [facility] PROGRESS NOTES DATE April 29, 2017 DISCUSSION Mr. Lao is a 31-year-old white male, who was seen today and chart was reviewed and the case was discussed with the staff. He has been anxious, withdrawn, and rather seclusive to himself. Meanwhile, he has been cooperative with the treatment recommendations and he has been taking the medications and tolerating them fairly well with no reported side effects. MENTAL STATUS EXAMINATION Young white male, who was casually dressed with fair personal hygiene and appears to be in no acute distress or discomfort. He was awake and alert on interaction with intact orientation. His mood is anxious with a congruent affect. His speech is slow and goal-directed. He denies any suicidal or homicidal ideations. His insight and judgment remain slightly impaired. TREATMENT PLAN 1. We will continue him on his current medications and treatment protocol, and will monitor his response to the medications, and make further adjustments as needed. 2. We will continue to followup. Dictated by... Jonh Kim/becca TD: 04/30/2017 07:30 JOB #: [id number] Unit #: [id number] #: [id number] Patient: MAXWELL LAO [facility] PROGRESS NOTES Page 1 of 1 X Mane Tyler MD PROGRESS NOTE
--- NOTE | ~2017-04-26 | PN ---
Unit #: [id number] #: [id number] Patient: MAXWELL LAO [id number] [facility] [address] [place] [address] [id number] MR#: [id number] NAME: MAXWELL LAO ROOM: 85 Age: 31 Sex: M Admission Date: 04/26/2017 : 1985 Attending Physician: Mane Tyler M.D. Admitting Physician: Mane Tyler M.D. Primary Care Physician: Jacobo Doctor Not In System [facility] PROGRESS NOTES DATE 04/28/2017 DISCUSSION Mr. Lao is a 31-year-old white male who was seen today and chart was reviewed and case was discussed with the staff. He has been anxious, withdrawn, seclusive to himself and was not feeling good and had been complaining of significant anxiety and acute detox symptoms and persistent depressive symptoms. Meanwhile, he has been taking medications and tolerating them fairly well with no reported side effects. MENTAL STATUS EXAMINATION Young white male who was casually dressed with fair personal hygiene and appears to be in no acute distress or discomfort. He was awake and alert on interaction with intact orientation. His mood was anxious with congruent affect. His speech is slow and goal-directed. He reports having suicidal ideation but denies any homicidal ideation. His insight and judgement remains slightly impaired. TREATMENT PLAN 1. Will continue on his current medications and treatment protocol. Will monitor his response to the medications and make adjustments as needed. 2. Will continue to follow up. Dictated by... Jonh Kim/raphael TD: 04/29/2017 20:27 JOB #: [id number] Unit #: [id number] #: [id number] Patient: MAXWELL LAO [facility] PROGRESS NOTES Page 1 of 1 X Mane Tyler MD PROGRESS NOTE
[2017-04-27 14:18] LABS: BASOPHIL# 0.1 X10e3 (0-0.3); BASOPHIL% 1.4 % (0-2.5); EOSINOPHIL# 0.1 X10e3 (0-0.7); EOSINOPHIL% 2.4 % (0.0-7.0); HEMATOCRIT 39.2 % (38.0-50.0); HEMOGLOBIN 13.2 gm/dL (13.0-16.0); LYMPHOCYTE# 1.8 X10e3 (1.0-3.5); LYMPHOCYTE% 35.3 % (17.0-45.0); MEAN CELL VOLUME 79.7 FL (83-96); MEAN CORPUSCULAR HEMOGLOBIN 26.8 PG (28-34); MEAN CORPUSCULAR HGB CONC 33.6 g/dL (30-36); MEAN PLATELET VOLUME 7.2 FL (6.5-11.5); MONOCYTE# 0.3 X10e3 (0-1.0); MONOCYTE% 5.6 % (3.0-12.0); NEUTROPHIL# 2.9 X10e3 (1.5-7.1); NEUTROPHIL% 55.3 % (40-75); PLATELET COUNT 301 X10e3 (140-420); RED BLOOD COUNT 4.92 X10e (3.90-5.60); RED CELL DISTRIBUTION WIDTH 15.7 % (11.0-15.5); WHITE BLOOD COUNT 5.2 X10e3 (4.0-10.5)
[2017-04-27 14:25] LABS: DIFF IND NO
[2017-04-27 15:23] LABS: ALBUMIN SERUM 4.4 g/dL (3.5-5.0); BILIRUBIN,TOTAL 0.4 mg/dL (0.2-2.0); BUN/CREATININE RATIO 13.84; CALCIUM SERUM 8.9 mg/dL (8.4-10.2); CREATININE SERUM 1.3 mg/dL (0.6-1.4); GLOM FILT RATE Estimated 73.2 mL/min (>60); POTASSIUM 4.7 mmol/L (3.5-5.1); PROTEIN TOTAL SERUM 6.6 g/dL (6.0-8.3)
[2017-04-29 09:56] LABS: URINE APPEARANCE TURBID; URINE BILIRUBIN NEG (NEG); URINE BLOOD NEG (NEG); URINE COLOR DK YELLOW; URINE GLUCOSE NEG (NEG); URINE KETONE NEG (NEG); URINE LEUKOCYTE ESTERASE NEG (NEG); URINE NITRATE NEG (NEG); URINE PROTEIN NEG (NEG); URINE SPECIFIC GRAVITY 1.031 (1.003-1.035); URINE UROBILINOGEN 0.2 MG/DL (NEG)
[2017-04-29 13:56] LABS: AMPHETAMINE NEG (NEG); BARBITURATES NEG (NEG); BENZODIAZEPINES POS (NEG); COCAINE NEG (NEG); MARIJUANA NEG (NEG); OPIATES NEG (NEG); TRICYCLIC ANTIDEPRESSANTS NEG (NEG); U METHADONE NEG (NEG)
== END 2017-05-01 09:10 | DRG 885 ==
LOC: P1E 23:45
PROVIDERS: Psychiatry & Neurology Psychiatry
PROC: HZ2ZZZZ Detoxification Services for Substance Abuse Treatment (ICD-10-PCS; principal; 2017-04-27)
DX: F31.32 Bipolar disorder, current episode depressed, moderate (principal); E03.9 Hypothyroidism, unspecified; F10.20 Alcohol dependence, uncomplicated
CPT/HCPCS: 80053; 80307; 81003; 85025; 86592